=== PATIENT | male | born 1935 | race Caucasian/White ===

== ENCOUNTER 2017-01-13 16:16 | Emergency (ER) | payer MEDICARE, BC ==
[2017-01-13 16:52] VITALS: BP 170/66
--- NOTE | 2017-01-13 17:04 | EDM.PDOC ---
ED HPI GENERAL MEDICAL PROBLEM - General Chief Complaint: General Stated Complaint: UNKNOWN Time Seen by Provider: 01/13/17 16:45 Source of Information: Reports: Patient History Limitations: Reports: No Limitations - History of Present Illness INITIAL COMMENTS - FREE TEXT/NARRATIVE: According to patient he was working in the garage on wood work. He felt dizzy and was trying to get inside the house. He is legally blind. He is not sure if he felt weak, but fell on the lawn and hit his head and not sure if he really hit his head hard, but felt nausea. No weakness. No tingling or numbness in the extremities. No vomiting. No headache. No swelling of the head. called ambulance and was brought in by EMT. Pt was treated for chest congestion yesterday by Dr. Munoz, and also got the wax removed from his ears. He is sore in the left ear. Onset: Today Onset Date: 01/13/17 Onset Time: 16:00 Improves with: Reports: None Worsens with: Reports: None Associated Symptoms: Reports: Nausea/Vomiting, Weakness. Denies: Confusion, Chest Pain, Cough, Fever/Chills, Headaches, Rash, Seizure, Shortness of Breath, Syncope - Related Data Allergies Allergy/AdvReac Type Severity Reaction Status Date / Time codeine Allergy Nausea and Verified 01/13/17 17:52 Vomiting erythromycin base Allergy Nausea Verified 01/13/17 17:52 [Erythromycin Base] Sulfa (Sulfonamide Allergy Nausea Verified 01/13/17 17:52 Antibiotics) Home Meds: Home Meds Pantoprazole [Pantoprazole Sodium] 40 mg PO ACBREAKFAST 01/22/14 [History] Verapamil HCl 360 mg PO DAILY 01/22/14 [History] Lisinopril 40 mg PO DAILY 09/20/14 [History] Simvastatin [Zocor] 20 mg PO QPM 09/20/14 [History] Insulin Isophane NPH, Human [NovoLIN N] 16 unit SUBCUT WITHDINNER 01/13/17 [ History] Insulin Isophane NPH, Human [NovoLIN N] 20 unit SUBCUT QAM 01/13/17 [History] Insulin Regular, Human [NovoLIN R] 8 unit SUBCUT TIDMEALS 01/13/17 [History] Past Medical History HEENT History: Reports: Sinusitis, Other (See Below) Other HEENT History: blind Cardiovascular History: Reports: High Cholesterol, Hypertension Respiratory History: Reports: Other (See Below) Other Respiratory History: multiple lung nodules Gastrointestinal History: Reports: Chronic Constipation, GERD Endocrine/Metabolic History: Reports: Diabetes, Type I - Past Surgical History HEENT Surgical History: Reports: Tonsillectomy GI Surgical History: Reports: Appendectomy Social & Family History - Tobacco Use Smoking Status *Q: Never Smoker Second Hand Smoke Exposure: No - Alcohol Use Days Per Week of Alcohol Use: 0 - Recreational Drug Use Recreational Drug Use: No ED ROS GENERAL - Review of Systems Review Of Systems: See Below Constitutional: Denies: Fever, Chills, Night Sweats, Diaphoresis HEENT: Reports: Other (pt is legaly blind). Denies: Throat Pain, Throat Swelling Respiratory: Reports: Cough, Sputum. Denies: Shortness of Breath, Wheezing, Pleuritic Chest Pain Cardiovascular: Denies: Chest Pain, Lightheadedness GI/Abdominal: Reports: Nausea. 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 and left pupil i 3mm in daimeter very sluggishly reactive to light.) Ears: Normal External Exam, Normal Canal, Hearing Grossly Normal, Normal TMs Nose: Normal Inspection, Normal Mucosa, No Blood Throat/Mouth: Normal Inspection, Normal Lips, Normal Teeth, Normal Gums, Normal Oropharynx, Normal Voice, No Airway Compromise Head: Atraumatic, Normocephalic Neck: Normal Inspection, Supple, Non-Tender, Full Range of Motion Respiratory/Chest: No Respiratory Distress, Lungs Clear, Normal Breath Sounds, No Accessory Muscle Use, Chest Non-Tender Cardiovascular: Normal Peripheral Pulses, Regular Rate, Rhythm, No Edema, No Gallop, No JVD, No Murmur, No Rub GI/Abdominal: Normal Bowel Sounds, Soft, Non-Tender, No Organomegaly, No Distention, No Abnormal Bruit, No Mass Extremities: Normal Inspection, Normal Range of Motion, Non-Tender, Normal Capillary Refill, No Pedal Edema Neurological: Alert, Oriented, CN II-XII Intact, Normal Cognition, Normal Gait, Normal Reflexes, No Motor/Sensory Deficits Course - Vital Signs Text/Narrative:: Pt's CT head shows chronic changes, and he has fluid in the mastoid air cells, which explains his dizziness getting worse over the past 2 days. He does claim he feels swayed to right or left some times. He does feels nausea due to his mastoid fluid collection. His CBC appears normal and his CMP is stable. Pt and reassured that he has mild labrynthitis from the sinus infection. he has been started on augmentin by Dr. Munoz yesterday, which I have advised to continue and advised him to start meclizine 25mg 3 times dialy for his dizziness. AVOID TILTING OR MOVING THE HEAD SUDDENLY which will trigger his dizzy spell. and also risk of fall. This will gradually improve over 1-2 days as the fluid gets absorbed. Last Recorded V/S: Last Vital Signs Temp 96.8 F 01/13/17 16:40 Pulse 54 L 01/13/17 16:40 Resp 20 01/13/17 16:40 BP 170/66 H 01/13/17 16:40 Pulse Ox 95 01/13/17 16:40 - Orders/Labs/Meds Orders: Active Orders 24 hr Category Date Time Status Head wo Cont [CT] Stat Exams 01/13/17 16:57 Taken Labs: Laboratory Tests 01/13/17 01/13/17 01/13/17 Range/Units 16:00 17:30 17:30 WBC 11.3 H (4.0-11.0) K/uL RBC 3.80 L (4.50-6.50) M/uL Hgb 11.4 L (13.0-18.0) g/dL Hct 33.8 L (40.0-54.0) % MCV 89 (76-96) fL MCH 30.0 (27.0-32.0) pg MCHC 33.7 (31.0-35.0) g/dL RDW 12.5 (11.0-16.0) % Plt Count 256 (150-400) K/uL MPV 10.2 H (6.0-10.0) fL Neut % (Auto) 80.0 H (45.0-70.0) % Lymph % (Auto) 6.5 L (20.0-40.0) % [place] % (Auto) 12.3 H (3.0-10.0) % Eos % (Auto) 0.9 L (1.0-5.0) % Baso % (Auto) 0.3 (0.0-0.5) % Neut # (Auto) 9.07 H (2.00-7.50) K/uL Lymph # (Auto) 0.74 L (1.50-4.00) K/uL [place] # (Auto) 1.39 H (0.20-0.80) K/uL Eos # (Auto) 0.10 (0.04-0.40) K/uL Baso # (Auto) 0.03 (0.02-0.10) K/uL Sodium 140 (136-145) mmol/L Potassium 4.3 (3.5-5.1) mmol/L Chloride 104 (98-107) mmol/L Carbon Dioxide 28.1 (21.0-32.0) mmol/L Anion Gap 12.2 (5.0-15.0) mmol/L BUN 25 (8-26) mg/dL Creatinine 1.31 H (0.70-1.30) mg/dL Est Cr Clr Drug Dosing TNP Estimated GFR (MDRD) 52 L (>60) MLS/MIN BUN/Creatinine Ratio 19.1 (6-25) Glucose 186 H D (74-100) mg/dL POC Glucose 186 H (74-110) mg/dL Calcium 8.9 (8.5-10.1) mg/dL Total Bilirubin 0.3 D (0.0-1.0) mg/dL AST 15 (15-37) U/L ALT 22 (12-78) U/L Alkaline Phosphatase 84 (46-116) U/L Total Protein 7.2 (6.4-8.2) g/dL Albumin 3.1 L (3.4-5.0) g/dL Globulin 4.1 (2.2-4.2) g/dL Albumin/Globulin Ratio 0.8 (0.8-2.0) Meds: Medications Discontinued Medications Generic Name Dose Route Start Last Admin Trade Name Megha PRN Reason Stop Dose Admin Meclizine HCl Confirm 01/13/17 17:43 Antivert Administered 01/13/17 17:44 Dose 25 mg .ROUTE .STK-MED ONE Meclizine HCl Confirm 01/13/17 18:15 Antivert Administered 01/13/17 18:16 Dose 50 mg .ROUTE .STK-MED ONE Ondansetron HCl Confirm 01/13/17 17:28 Zofran Odt Administered 01/13/17 17:29 Dose 4 mg .ROUTE .STK-MED ONE Departure - Departure Time of Disposition: 18:15 Disposition: Home, Self-Care 01 Condition: Fair Clinical Impression: Labyrinthitis of both ears - Discharge Information Referrals: PCP,None [Ordering Only Provider] - Forms: ED Department Discharge - Problem List & Annotations (1) Labyrinthitis of both ears SNOMED Code(s): 05096507 Code(s): H83.03 - LABYRINTHITIS, BILATERAL Status: Acute Current Visit: Yes - Problem List Review Problem List Initiated/Reviewed/Updated: Yes - My Orders Last 24 Hours: My Active Orders 01/13/17 16:57 Head wo Cont [CT] Stat - Assessment/Plan Admission H&P: Please use this note as an admission H&P Last 24 Hours: My Active Orders 01/13/17 16:57 Head wo Cont [CT] Stat Assessment:: LAbrynthitis both ear with dizziness Plan: Pt's CT head shows chronic changes, and he has fluid in the mastoid air cells, which explains his dizziness getting worse over the past 2 days. He does claim he feels swayed to right or left some times. He does feels nausea due to his mastoid fluid collection. His CBC appears normal and his CMP is stable. Pt and reassured that he has mild labrynthitis from the sinus infection. he has been started on augmentin by Dr. Munoz yesterday, which I have advised to continue and advised him to start meclizine 25mg 3 times dialy for his dizziness. AVOID TILTING OR MOVING THE HEAD SUDDENLY which will trigger his dizzy spell. and also risk of fall. This will gradually improve over 1-2 days as the fluid gets absorbed.
[2017-01-13] MEDS ORDERED: Ondansetron 4 MG Tab.DIS ONE (17:28)
--- NOTE | 2017-01-13 19:45 | CT ---
DATE OF SERVICE: 01/13/2017 CLINICAL DATA: Fall with dizziness and nausea. UNENHANCED BRAIN CT Multislice acquisition through the brain without IV contrast was performed. No priors. There is diffuse cerebral atrophy. There are extensive periventricular lucencies bilaterally consistent with small vessel ischemic change. 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 No masses or mass effect. No intracranial hemorrhage. No evidence of acute or subacute infarct. There is mucosal thickening in the ethmoid, sphenoid, and right maxillary sinuses consistent with chronic sinusitis. There is atrophy and calcification of the right globe. There is sclerosis of the left mastoid air cells consistent with chronic mastoid disease. No other significant findings. IMPRESSION: No acute intracranial abnormalities. Other findings as discussed above. [id number] [facility]
== END 2017-01-13 18:43 | disposition home or self-care (01) ==
LOC: LB.ED 16:16
DX: H83.03 Labyrinthitis, bilateral (principal); I10 Essential (primary) hypertension; E78.00 Pure hypercholesterolemia, unspecified; K21.9 Gastro-esophageal reflux disease without esophagitis; E10.9 Type 1 diabetes mellitus without complications; Z79.4 Long term (current) use of insulin; Z79.899 Other long term (current) drug therapy; Z88.1 Allergy status to other antibiotic agents; Z88.2 Allergy status to sulfonamides; Z88.5 Allergy status to narcotic agent
CPT/HCPCS: 36415; 70450; 80053; 82962; 85025; 99284; A0425; A0429; A9270

== ENCOUNTER 2017-01-23 22:01 | Observation (INO) | payer MEDICARE, BC ==
[2017-01-23] MEDS: Albuterol/Ipratropium 3.0-0.5 MG/3 ML Neb Soln NEB PRN (22:20)
[2017-01-24] MEDS ORDERED: Furosemide 40 MG/4 ML VIAL IVPUSH ONE (00:23)
[2017-01-24] MEDS ORDERED: cefTRIAXone 1 GM in Sodium Chloride 0.9% 50 ML IV SCH (00:30)
[2017-01-24] MEDS ORDERED: Azithromycin 500 MG in Sodium Chloride 0.9% 250 ML IV SCH (00:30)
--- NOTE | 2017-01-24 00:35 | EDM.PDOC ---
ED HPI GENERAL MEDICAL PROBLEM - General Chief Complaint: General Stated Complaint: TROUBLE WALKING Time Seen by Provider: 01/23/17 23:25 Source of Information: Reports: Patient, Family History Limitations: Reports: No Limitations - History of Present Illness INITIAL COMMENTS - FREE TEXT/NARRATIVE: Patient is an 81 year old man who has had a 12 day history of chest congestion productive of clear sputum. He has been on an oral antibiotic and has a neb that he has not been using but he is getting more congested and weak. He is not having breathing problems. No fever or chills. Onset: Gradual Onset Date: 01/12/17 Onset Time: 07:00 Duration: Day(s): (12) Location: Reports: Chest Quality: Reports: Same as Previous Episode Severity: Moderate Improves with: Reports: None Worsens with: Reports: None Context: Reports: Other (Has been congested for over 2 months and has had to have lasix before.) Associated Symptoms: Reports: Fever/Chills - Related Data Allergies Allergy/AdvReac Type Severity Reaction Status Date / Time codeine Allergy Nausea and Verified 01/13/17 17:52 Vomiting erythromycin base Allergy Nausea Verified 01/13/17 17:52 [Erythromycin Base] Sulfa (Sulfonamide Allergy Nausea Verified 01/13/17 17:52 Antibiotics) Home Meds: Home Meds Pantoprazole [Pantoprazole Sodium] 40 mg PO ACBREAKFAST 01/22/14 [History] Verapamil HCl 360 mg PO DAILY 01/22/14 [History] Lisinopril 40 mg PO DAILY 09/20/14 [History] Simvastatin [Zocor] 20 mg PO QPM 09/20/14 [History] Insulin Isophane NPH, Human [NovoLIN N] 16 unit SUBCUT WITHDINNER 01/13/17 [ History] Insulin Isophane NPH, Human [NovoLIN N] 20 unit SUBCUT QAM 01/13/17 [History] Insulin Regular, Human [NovoLIN R] 8 unit SUBCUT TIDMEALS 01/13/17 [History] Past Medical History HEENT History: Reports: Sinusitis, Other (See Below) Other HEENT History: blind Cardiovascular History: Reports: High Cholesterol, Hypertension Respiratory History: Reports: Other (See Below) Other Respiratory History: multiple lung nodules Gastrointestinal History: Reports: Chronic Constipation, GERD Endocrine/Metabolic History: Reports: Diabetes, Type I - Past Surgical History HEENT Surgical History: Reports: Tonsillectomy GI Surgical History: Reports: Appendectomy Social & Family History - Tobacco Use Smoking Status *Q: Never Smoker Second Hand Smoke Exposure: No - Alcohol Use Days Per Week of Alcohol Use: 0 - Recreational Drug Use Recreational Drug Use: No ED ROS GENERAL - Review of Systems Review Of Systems: See Below Constitutional: Reports: Fever (Low grade), Chills HEENT: Reports: No Symptoms Respiratory: Reports: Cough, Sputum Cardiovascular: Reports: No Symptoms Endocrine: Reports: No Symptoms GI/Abdominal: Reports: No Symptoms : Reports: No Symptoms Musculoskeletal: Reports: No Symptoms Skin: Reports: No Symptoms Neurological: Reports: No Symptoms Psychiatric: Reports: No Symptoms Hematologic/Lymphatic: Reports: No Symptoms Immunologic: Reports: No Symptoms ED EXAM, GENERAL - Physical Exam Exam: See Below Exam Limited By: No Limitations General Appearance: Alert, WD/WN, No Apparent Distress Eye Exam: Bilateral Eye: EOMI, Normal Fundi, Normal Inspection, PERRL Ears: Hearing Loss (Hearing aids in) Ear Exam: Bilateral Ear: Auricle Normal, Canal Normal Nose: Normal Inspection, Normal Mucosa, No Blood Throat/Mouth: Normal Inspection, Normal Lips, Normal Teeth, Normal Gums, Normal Oropharynx, Normal Voice, No Airway Compromise Head: Atraumatic, Normocephalic Neck: Normal Inspection, Supple, Non-Tender, Full Range of Motion Respiratory/Chest: Rales, Rhonchi (Right greater than left lung gallegos.) Cardiovascular: Normal Peripheral Pulses, Regular Rate, Rhythm, No Edema, No Gallop, No JVD, No Murmur, No Rub GI/Abdominal: Normal Bowel Sounds, Soft, Non-Tender, No Organomegaly, No Distention, No Abnormal Bruit, No Mass Back Exam: Normal Inspection, Full Range of Motion, NT Extremities: Pedal Edema (1 plus) Neurological: Alert, Oriented, CN II-XII Intact, Normal Cognition, Normal Gait, Normal Reflexes, No Motor/Sensory Deficits Psychiatric: Normal Affect, Normal Mood Skin Exam: Warm EKG INTERPRETATION EKG Date: 01/23/17 Time: 23:52 Rhythm: NSR [place]: Normal P-Wave: Present QRS: Normal ST-T: Depressed QT: Normal Comparison: NA - No Prior EKG Course - Vital Signs Text/Narrative:: Uneventful ED course. We will admit him to observation for IV Rocephin 1 gram q 24 hours, IV Zithromax 500 mg q 24 hours, IV lasix 20 mg q day with Urinary catheter in since he is too weak to get up for toileting. IV Normal Saline at 100 ml per hour. Low salt diet and watch carefully. He is a full code. Last Recorded V/S: Last Vital Signs Temp 37.1 C 01/23/17 23:12 Pulse 68 01/23/17 23:12 Resp 20 01/23/17 23:12 BP 188/55 H 01/23/17 23:12 Pulse Ox 98 01/23/17 23:12 - Orders/Labs/Meds Orders: Active Orders 24 hr Category Date Time Status Admission Status [Patient Status] [ADT] Routine ADT 01/24/17 00:27 Ordered EKG Documentation Completion [RC] ASDIRECTED Care 01/23/17 22:56 Active RT Aerosol Therapy [RC] ASDIRECTED Care 01/23/17 22:59 Active Urinary Catheter Assessment [RC] ASDIRECTED Care 01/24/17 00:27 Ordered Urinary Catheter Insertion [Insert Urinary Catheter] [ Care 01/24/17 00:30 Ordered OM.PC] Q24H Low Salt [Sodium Restricted Diet] [DIET] Diet 01/24/17 Breakfast Ordered Chest 2V [CR] Stat Exams 01/23/17 22:55 Taken CULTURE BLOOD [BC] Stat Lab 01/24/17 00:22 Ordered Albuterol/Ipratropium [DuoNeb 3.0-0.5 MG/3 ML] Med 01/23/17 22:58 Active 3 ml NEB Q2H PRN Azithromycin [Zithromax] 500 mg Med 01/24/17 00:30 Ordered Sodium Chloride 0.9% [Normal Saline] 250 ml IV Q24H Sodium Chloride 0.9% @ 100 MLS/HR(1,000ml) Med 01/24/17 00:30 Ordered Sodium Chloride 0.9% [Normal Saline] 1,000 ml IV ASDIRECTED cefTRIAXone [Rocephin] 1 gm Med 01/24/17 00:30 Ordered Sodium Chloride 0.9% [Normal Saline] 50 ml IV Q24H Medication Orders Albuterol/Ipratropium (Duoneb 3.0-0.5 Mg/3 Ml) 3 ml NEB Q2H PRN PRN Reason: Congestion Sodium Chloride (Normal Saline) 1,000 mls @ 100 mls/hr IV ASDIRECTED CJ Ceftriaxone Sodium 1 gm/ (Sodium Chloride) 50 mls @ 200 mls/hr IV Q24H CJ Azithromycin 500 mg/ Sodium (Chloride) 250 mls @ 250 mls/hr IV Q24H CJ Labs: Laboratory Tests 01/23/17 01/23/17 01/23/17 Range/Units 23:00 23:00 23:00 WBC (4.0-11.0) K/uL RBC (4.50-6.50) M/uL Hgb (13.0-18.0) g/dL Hct (40.0-54.0) % MCV (76-96) fL MCH (27.0-32.0) pg MCHC (31.0-35.0) g/dL RDW (11.0-16.0) % Plt Count (150-400) K/uL MPV (6.0-10.0) fL Neut % (Auto) (45.0-70.0) % Lymph % (Auto) (20.0-40.0) % [place] % (Auto) (3.0-10.0) % Eos % (Auto) (1.0-5.0) % Baso % (Auto) (0.0-0.5) % Neut # (Auto) (2.00-7.50) K/uL Lymph # (Auto) (1.50-4.00) K/uL [place] # (Auto) (0.20-0.80) K/uL Eos # (Auto) (0.04-0.40) K/uL Baso # (Auto) (0.02-0.10) K/uL Sodium 137 (136-145) mmol/L Potassium 4.6 (3.5-5.1) mmol/L Chloride 101 (98-107) mmol/L Carbon Dioxide 29.6 (21.0-32.0) mmol/L Anion Gap 11.0 (5.0-15.0) mmol/L BUN 18 D (8-26) mg/dL Creatinine 1.29 (0.70-1.30) mg/dL Est Cr Clr Drug Dosing 44.15 mL/min Estimated GFR (MDRD) 53 L (>60) MLS/MIN BUN/Creatinine Ratio 14.0 (6-25) Glucose 218 H (74-100) mg/dL Calcium 8.8 (8.5-10.1) mg/dL Total Bilirubin 0.6 D (0.0-1.0) mg/dL AST 24 (15-37) U/L ALT 27 (12-78) U/L Alkaline Phosphatase 91 (46-116) U/L Troponin I 0.037 (0.000-0.060) ng/mL B-Natriuretic Peptide 1719 H (0-450) pg/mL Total Protein 7.4 (6.4-8.2) g/dL Albumin 3.3 L (3.4-5.0) g/dL Globulin 4.1 (2.2-4.2) g/dL Albumin/Globulin Ratio 0.8 (0.8-2.0) 01/23/17 Range/Units 23:15 WBC 11.9 H D (4.0-11.0) K/uL RBC 3.86 L (4.50-6.50) M/uL Hgb 11.6 L (13.0-18.0) g/dL Hct 34.0 L (40.0-54.0) % MCV 88 (76-96) fL MCH 30.1 (27.0-32.0) pg MCHC 34.1 (31.0-35.0) g/dL RDW 12.4 (11.0-16.0) % Plt Count 262 (150-400) K/uL MPV 9.3 (6.0-10.0) fL Neut % (Auto) 78.1 H (45.0-70.0) % Lymph % (Auto) 8.7 L (20.0-40.0) % [place] % (Auto) 12.9 H (3.0-10.0) % Eos % (Auto) 0.1 L (1.0-5.0) % Baso % (Auto) 0.2 (0.0-0.5) % Neut # (Auto) 9.30 H (2.00-7.50) K/uL Lymph # (Auto) 1.04 L (1.50-4.00) K/uL [place] # (Auto) 1.53 H (0.20-0.80) K/uL Eos # (Auto) 0.01 L (0.04-0.40) K/uL Baso # (Auto) 0.02 (0.02-0.10) K/uL Sodium (136-145) mmol/L Potassium (3.5-5.1) mmol/L Chloride (98-107) mmol/L Carbon Dioxide (21.0-32.0) mmol/L Anion Gap (5.0-15.0) mmol/L BUN (8-26) mg/dL Creatinine (0.70-1.30) mg/dL Est Cr Clr Drug Dosing mL/min Estimated GFR (MDRD) (>60) MLS/MIN BUN/Creatinine Ratio (6-25) Glucose (74-100) mg/dL Calcium (8.5-10.1) mg/dL Total Bilirubin (0.0-1.0) mg/dL AST (15-37) U/L ALT (12-78) U/L Alkaline Phosphatase (46-116) U/L Troponin I (0.000-0.060) ng/mL B-Natriuretic Peptide (0-450) pg/mL Total Protein (6.4-8.2) g/dL Albumin (3.4-5.0) g/dL Globulin (2.2-4.2) g/dL Albumin/Globulin Ratio (0.8-2.0) Meds: Medications Generic Name Dose Route Start Last Admin Trade Name Freq PRN Reason Stop Dose Admin Albuterol/Ipratropium 3 ml 01/23/17 22:58 Duoneb 3.0-0.5 Mg/3 Ml NEB Q2H PRN Congestion Sodium Chloride 1,000 mls @ 100 mls/hr 01/24/17 00:30 Normal Saline IV ASDIRECTED CJ Ceftriaxone Sodium 1 gm/ 50 mls @ 200 mls/hr 01/24/17 00:30 Sodium Chloride IV Q24H CJ Azithromycin 500 mg/ Sodium 250 mls @ 250 mls/hr 01/24/17 00:30 Chloride IV Q24H CJ Discontinued Medications Generic Name Dose Route Start Last Admin Trade Name Freq PRN Reason Stop Dose Admin Furosemide 10 mg 01/24/17 00:23 Lasix IVPUSH 01/24/17 00:24 NOW ONE Departure - Departure Time of Disposition: 00:42 Disposition: Refer to Observation Condition: Fair Clinical Impression: Pneumonia, CHF (congestive heart failure) - Discharge Information - My Orders Last 24 Hours: My Active Orders 01/23/17 22:55 Chest 2V [CR] Stat 01/23/17 22:56 EKG Documentation Completion [RC] ASDIRECTED 01/23/17 22:58 Albuterol/Ipratropium [DuoNeb 3.0-0.5 MG/3 ML] 3 ml NEB Q2H PRN 01/23/17 22:59 RT Aerosol Therapy [RC] ASDIRECTED 01/24/17 00:22 CULTURE BLOOD [BC] Stat 01/24/17 00:27 Admission Status [Patient Status] [ADT] Routine Urinary Catheter Assessment [RC] ASDIRECTED 01/24/17 00:30 Urinary Catheter Insertion [Insert Urinary Catheter] [OM.PC] Q24H Azithromycin [Zithromax] 500 mg Sodium Chloride 0.9% [Normal Saline] 250 ml IV Q24H Sodium Chloride 0.9% @ 100 MLS/HR(1,000ml) Sodium Chloride 0.9% [Normal Saline] 1,000 ml IV ASDIRECTED cefTRIAXone [Rocephin] 1 gm Sodium Chloride 0.9% [Normal Saline] 50 ml IV Q24H 01/24/17 Breakfast Low Salt [Sodium Restricted Diet] [DIET] - Assessment/Plan Last 24 Hours: My Active Orders 01/23/17 22:55 Chest 2V [CR] Stat 01/23/17 22:56 EKG Documentation Completion [RC] ASDIRECTED 01/23/17 22:58 Albuterol/Ipratropium [DuoNeb 3.0-0.5 MG/3 ML] 3 ml NEB Q2H PRN 01/23/17 22:59 RT Aerosol Therapy [RC] ASDIRECTED 01/24/17 00:22 CULTURE BLOOD [BC] Stat 01/24/17 00:27 Admission Status [Patient Status] [ADT] Routine Urinary Catheter Assessment [RC] ASDIRECTED 01/24/17 00:30 Urinary Catheter Insertion [Insert Urinary Catheter] [OM.PC] Q24H Azithromycin [Zithromax] 500 mg Sodium Chloride 0.9% [Normal Saline] 250 ml IV Q24H Sodium Chloride 0.9% @ 100 MLS/HR(1,000ml) Sodium Chloride 0.9% [Normal Saline] 1,000 ml IV ASDIRECTED cefTRIAXone [Rocephin] 1 gm Sodium Chloride 0.9% [Normal Saline] 50 ml IV Q24H 01/24/17 Breakfast Low Salt [Sodium Restricted Diet] [DIET]
[2017-01-24] MEDS: Sodium Chloride 0.9% 1,000 ML IV SCH ×2 (01:10→12:26)
[2017-01-24] MEDS ORDERED: Lidocaine 2% Jelly 5 ML Urojet ONE ×2 (02:25→08:51)
[2017-01-24] MEDS: LORazepam 0.5 MG Tab PO PRN ×2 (03:09→10:23)
[2017-01-24] MEDS: Albuterol/Ipratropium 3.0-0.5 MG/3 ML Neb Soln NEB PRN ×3 (07:31→17:15)
[2017-01-24] MEDS ORDERED: INSULIN ISOPHANE NPH HUMAN 100 UNIT/ML SUBCUT ONE (08:40)
[2017-01-24] MEDS ORDERED: Acetaminophen 325 MG Tab PO PRN (09:14)
[2017-01-24] MEDS ORDERED: Acetaminophen 650 MG Tab.ER ONE (09:17)
[2017-01-24] MEDS ORDERED: LISINOPRIL 40 MG PO SCH (09:45)
[2017-01-24] MEDS ORDERED: VERAPAMIL 360 MG PO SCH (09:45)
[2017-01-24] MEDS: SIMVASTATIN 10 MG PO SCH ×2 (10:40→21:18)
[2017-01-24] MEDS: INSULIN REGULAR HUMAN 100 UNIT/ML SUBCUT SCH ×3 (11:30→21:08)
--- NOTE | 2017-01-24 12:02 | PCM.PN ---
- General Info Date of Service: 01/24/17 Admission Dx/Problem (Free Text): Pneumonia. Functional Status: Reports: Pain Controlled, Urinating - Review of Systems General: Reports: Weakness HEENT: Reports: No Symptoms Pulmonary: Reports: Cough, Sputum Cardiovascular: Reports: No Symptoms Gastrointestinal: Reports: No Symptoms Genitourinary: Reports: No Symptoms Musculoskeletal: Reports: No Symptoms Skin: Reports: No Symptoms Neurological: Reports: No Symptoms Psychiatric: Reports: No Symptoms - Patient Data Vitals - Most Recent: Last Vital Signs Temp 37.1 C 01/23/17 23:12 Pulse 72 01/24/17 02:14 Resp 20 01/23/17 23:12 BP 191/69 H 01/24/17 02:14 Pulse Ox 93 L 01/24/17 02:14 Weight - Most Recent: 95.254 kg I&O - Last 24 Hours: Intake & Output 01/23/17 01/24/17 01/24/17 22:59 06:59 14:59 Intake Total 916 Output Total 800 Balance 116 Med Orders - Current: Current Medications Acetaminophen (Tylenol) 650 mg PO Q4H PRN PRN Reason: Pain Last Admin: 01/24/17 09:59 Dose: 650 mg Albuterol/Ipratropium (Duoneb 3.0-0.5 Mg/3 Ml) 3 ml NEB Q2H PRN PRN Reason: Congestion Last Admin: 01/24/17 07:31 Dose: 3 ml Furosemide (Lasix) 20 mg IVPUSH DAILY [facility] Sodium Chloride (Normal Saline) 1,000 mls @ 100 mls/hr IV ASDIRECTED [facility] Last Admin: 01/24/17 01:10 Dose: 100 mls/hr Ceftriaxone Sodium 1 gm/ (Sodium Chloride) 50 mls @ 200 mls/hr IV Q24H CJ Last Admin: 01/24/17 01:28 Dose: 200 mls/hr Azithromycin 500 mg/ Sodium (Chloride) 250 mls @ 250 mls/hr IV Q24H [facility] Last Admin: 01/24/17 01:28 Dose: 250 mls/hr Insulin Human NPH (Humulin N) 16 unit SUBCUT WITHDINNER [facility] Insulin Human NPH (Humulin N) 20 unit SUBCUT WITHBREAKFAST [facility] Insulin Human Regular (Humulin R) 8 unit SUBCUT TIDAC CJ PRN Reason: Protocol Lisinopril (Prinivil) 40 mg PO DAILY [facility] Last Admin: 01/24/17 08:40 Dose: 40 mg Lorazepam (Ativan) 0.5 mg PO Q4H PRN PRN Reason: Other Last Admin: 01/24/17 10:23 Dose: 0.5 mg Verapamil 360 Mg Tab (.Er*Pt Own Med*) 0 each PO DAILY CJ Last Admin: 01/24/17 08:40 Dose: 360 each Simvastatin (Zocor) 10 mg PO BEDTIME CJ Last Admin: 01/24/17 10:40 Dose: Not Given Discontinued Medications Acetaminophen (Tylenol Arthritis Pain) Confirm Administered Dose 650 mg .ROUTE .STK-MED ONE Stop: 01/24/17 09:18 Last Admin: 01/24/17 10:03 Dose: Not Given Furosemide (Lasix) 10 mg IVPUSH NOW ONE Stop: 01/24/17 00:24 Last Admin: 01/24/17 01:28 Dose: 10 mg Insulin Human NPH (Humulin N) 14 unit SUBCUT ONETIME ONE Stop: 01/24/17 08:41 Last Admin: 01/24/17 08:40 Dose: 14 units Lidocaine HCl (Xylocaine 2% Jelly) Confirm Administered Dose 5 ml .ROUTE .STK- MED ONE Stop: 01/24/17 02:26 Last Admin: 01/24/17 03:15 Dose: 5 ml Lidocaine HCl (Xylocaine 2% Jelly) Confirm Administered Dose 5 ml .ROUTE .STK- MED ONE Stop: 01/24/17 08:52 Last Admin: 01/24/17 09:21 Dose: 5 ml - Exam General: Alert, Mild Distress Neck: Supple Lungs: Rales (Better on right lung gallegos but rales present in left lung gallegos. ) Cardiovascular: Regular Rate, Regular Rhythm GI/Abdominal Exam: Normal Bowel Sounds, Soft, Non-Tender, No Organomegaly, No Distention, No Abnormal Bruit, No Mass, Pelvis Stable Extremities: Normal Inspection, Normal Range of Motion, Non-Tender, No Pedal Edema, Normal Capillary Refill - Problem List Review Problem List Initiated/Reviewed/Updated: Yes - My Orders Last 24 Hours: My Active Orders 01/24/17 00:30 CULTURE BLOOD [BC] Stat 01/24/17 02:50 LORazepam [Ativan] 0.5 mg PO Q4H PRN 01/24/17 09:14 Acetaminophen [Tylenol] 650 mg PO Q4H PRN 01/24/17 09:45 Lisinopril [Prinivil] 40 mg PO DAILY Patient's Own Medication [Ptom] 0 each PO DAILY 01/24/17 10:13 Urinary Catheter Assessment [RC] ASDIRECTED 01/24/17 10:15 Light Catheter Insertion [Insert Urinary Catheter] [OM.PC] Q24H Simvastatin [Zocor] 10 mg PO BEDTIME 01/24/17 11:00 Insulin Regular, Human [HumuLIN R] 8 unit SUBCUT TIDAC 01/24/17 17:00 Insulin Isophane NPH, Human [HumuLIN N] 16 unit SUBCUT WITHDINNER 01/25/17 07:00 Insulin Isophane NPH, Human [HumuLIN N] 20 unit SUBCUT WITHBREAKFAST 01/25/17 08:00 Furosemide [Lasix] 20 mg IVPUSH DAILY - Plan Plan:: Continue Rocephin and Zithromax IV. Will adjust Insulin dosage since he is not eating much yet. He is doing better than last night but still is congested. He will have Lasix 20 mg IV given daily and he will be closely followed by Nursing and myself. Will round on him again tomorrow.
[2017-01-24] MEDS ORDERED: Furosemide 20 MG/2 ML VIAL ONE ×2 (12:11→19:03)
[2017-01-24] MEDS: INSULIN ISOPHANE NPH HUMAN 100 UNIT/ML SUBCUT SCH ×2 (17:29→21:09)
[2017-01-24] MEDS: Furosemide 40 MG/4 ML VIAL ONE ×2 (18:30→21:14)
[2017-01-24] MEDS ORDERED: Aspirin 81 MG Tab.Chew PO ONE (19:00)
[2017-01-24] MEDS ORDERED: Clopidogrel 75 MG Tab PO ONE (19:00)
[2017-01-24] MEDS ORDERED: Nitroglycerin/D5W 25 MG/250 ML BOTTLE IV SCH (19:16)
[2017-01-24] MEDS ORDERED: Morphine 2 MG/ML Syringe ONE (19:25)
--- NOTE | 2017-01-24 20:15 | PCM.DCSUM1 ---
Discharge Summary - Hospital Course Free Text/Narrative:: Patient is an 81 year old man who was admitted last night with a Right Mid Lobe Pneumonia and CHF. He was doing well through the day on IV Rocephin, IV Zithromax, IV Lasix and Duonebs. At 18:25 tonight he was getting another Duoneb and he desaturated his Oxygen level to 72%. He was put on oxygen at 10 liters by rebreathing mask and his pulse oximetry went up to 94%. An EKG done showed ST elevation in Leads [address] depression in leads V3-V6. His Troponin was 0.577. His CXR showed Pulmonary Edema. He was accepted by Dr. Berrios in Cardiology at [facility] who asked that we start a Heparin Drip, Nitro Drip , Aspirin 325 mg orally and Plavix 600 mg orally. He also has been given 60 mg of IV Lasix total since this episode occurred and 1 mg of Morphine. He will be put on a Bi-pap and [facility] will transport him by Helicopter to [place]. HPI Initial Comments: Had CHF and Right mid lobe pneumonia on admission. Brief History: SC and pulmonary edema is reason for transfer. - Discharge Data Discharge Date: 01/24/17 Discharge Disposition: DC/Tfer to Acute Hospital 02 Condition: Serious - Discharge Plan Home Medications: Home Meds Pantoprazole [Pantoprazole Sodium] 40 mg PO ACBREAKFAST 01/22/14 [History] Verapamil HCl 360 mg PO DAILY 01/22/14 [History] Lisinopril 40 mg PO DAILY 09/20/14 [History] Simvastatin [Zocor] 20 mg PO QPM 09/20/14 [History] Insulin Isophane NPH, Human [NovoLIN N] 16 unit SUBCUT WITHDINNER 01/13/17 [ History] Insulin Isophane NPH, Human [NovoLIN N] 20 unit SUBCUT QAM 01/13/17 [History] Insulin Regular, Human [NovoLIN R] 8 unit SUBCUT TIDMEALS 01/13/17 [History] Forms: ED Department Discharge - General Info Date of Service: 01/24/17 Functional Status: Reports: Pain Controlled - Review of Systems General: Reports: Weakness HEENT: Reports: No Symptoms Pulmonary: Reports: Shortness of Breath, Cough, Other (He was Hypoxic.) Cardiovascular: Reports: Other (SC with CHF and Pulmonary Edema.) Gastrointestinal: Reports: No Symptoms Genitourinary: Reports: No Symptoms Musculoskeletal: Reports: No Symptoms Skin: Reports: No Symptoms Neurological: Reports: No Symptoms Psychiatric: Reports: No Symptoms - Patient Data Vitals - Most Recent: Last Vital Signs Temp 36.6 C 01/24/17 12:00 Pulse 97 01/24/17 12:00 Resp 16 01/24/17 12:00 BP 140/48 L 01/24/17 12:00 Pulse Ox 97 01/24/17 12:00 Weight - Most Recent: 95.254 kg I&O - Last 24 hours: Intake & Output 01/24/17 01/24/17 01/24/17 06:59 14:59 22:59 Intake Total 916 700 Output Total 800 500 Balance 116 200 Lab Results - Last 24 hrs: Laboratory Results - last 24 hr 01/24/17 01/24/17 01/24/17 Range/Units 07:20 18:30 19:40 WBC 17.8 H D (4.0-11.0) K/uL RBC 3.74 L (4.50-6.50) M/uL Hgb 11.0 L (13.0-18.0) g/dL Hct 32.4 L (40.0-54.0) % MCV 87 (76-96) fL MCH 29.4 (27.0-32.0) pg MCHC 34.0 (31.0-35.0) g/dL RDW 12.6 (11.0-16.0) % Plt Count 270 (150-400) K/uL MPV 9.8 (6.0-10.0) fL Neut % (Auto) 85.7 H (45.0-70.0) % Lymph % (Auto) 4.2 L (20.0-40.0) % Real % (Auto) 10.0 (3.0-10.0) % Eos % (Auto) 0.0 L (1.0-5.0) % Baso % (Auto) 0.1 (0.0-0.5) % Neut # (Auto) 15.28 H (2.00-7.50) K/uL Lymph # (Auto) 0.75 L (1.50-4.00) K/uL Real # (Auto) 1.78 H (0.20-0.80) K/uL Eos # (Auto) 0.00 L (0.04-0.40) K/uL Baso # (Auto) 0.02 (0.02-0.10) K/uL Sodium (136-145) mmol/L Potassium (3.5-5.1) mmol/L Chloride (98-107) mmol/L Carbon Dioxide (21.0-32.0) mmol/L Anion Gap (5.0-15.0) mmol/L BUN (8-26) mg/dL Creatinine (0.70-1.30) mg/dL Est Cr Clr Drug Dosing mL/min Estimated GFR (MDRD) (>60) MLS/MIN BUN/Creatinine Ratio (6-25) Glucose (74-100) mg/dL POC Glucose 194 H (74-110) mg/dL Calcium (8.5-10.1) mg/dL Total Bilirubin (0.0-1.0) mg/dL AST (15-37) U/L ALT (12-78) U/L Alkaline Phosphatase (46-116) U/L Troponin I 0.577 H* D (0.000-0.060) ng/mL Total Protein (6.4-8.2) g/dL Albumin (3.4-5.0) g/dL Globulin (2.2-4.2) g/dL Albumin/Globulin Ratio (0.8-2.0) 01/24/ Range/Units 19:40 WBC (4.0-11.0) K/uL RBC (4.50-6.50) M/uL Hgb (13.0-18.0) g/dL Hct (40.0-54.0) % MCV (76-96) fL MCH (27.0-32.0) pg MCHC (31.0-35.0) g/dL RDW (11.0-16.0) % Plt Count (150-400) K/uL MPV (6.0-10.0) fL Neut % (Auto) (45.0-70.0) % Lymph % (Auto) (20.0-40.0) % Real % (Auto) (3.0-10.0) % Eos % (Auto) (1.0-5.0) % Baso % (Auto) (0.0-0.5) % Neut # (Auto) (2.00-7.50) K/uL Lymph # (Auto) (1.50-4.00) K/uL Real # (Auto) (0.20-0.80) K/uL Eos # (Auto) (0.04-0.40) K/uL Baso # (Auto) (0.02-0.10) K/uL Sodium 135 L (136-145) mmol/L Potassium 4.3 (3.5-5.1) mmol/L Chloride 101 (98-107) mmol/L Carbon Dioxide 18.2 L D (21.0-32.0) mmol/L Anion Gap 20.1 H (5.0-15.0) mmol/L BUN 20 (8-26) mg/dL Creatinine 1.19 (0.70-1.30) mg/dL Est Cr Clr Drug Dosing 47.86 mL/min Estimated GFR (MDRD) 59 L (>60) MLS/MIN BUN/Creatinine Ratio 16.8 (6-25) Glucose 255 H (74-100) mg/dL POC Glucose (74-110) mg/dL Calcium 8.4 L (8.5-10.1) mg/dL Total Bilirubin 0.9 D (0.0-1.0) mg/dL AST 36 (15-37) U/L ALT 21 (12-78) U/L Alkaline Phosphatase 82 (46-116) U/L Troponin I (0.000-0.060) ng/mL Total Protein 6.9 (6.4-8.2) g/dL Albumin 2.8 L (3.4-5.0) g/dL Globulin 4.1 (2.2-4.2) g/dL Albumin/Globulin Ratio 0.7 L (0.8-2.0) Med Orders - Current: Current Medications Acetaminophen (Tylenol) 650 mg PO Q4H PRN PRN Reason: Pain Last Admin: 01/24/17 09:59 Dose: 650 mg Albuterol/Ipratropium (Duoneb 3.0-0.5 Mg/3 Ml) 3 ml NEB Q2H PRN PRN Reason: Congestion Last Admin: 01/24/17 17:15 Dose: 3 ml Furosemide (Lasix) 20 mg IVPUSH DAILY [facility] Last Admin: 01/24/17 12:26 Dose: 20 mg Sodium Chloride (Normal Saline) 1,000 mls @ 100 mls/hr IV ASDIRECTED [facility] Last Admin: 01/24/17 12:26 Dose: 100 mls/hr Ceftriaxone Sodium 1 gm/ (Sodium Chloride) 50 mls @ 200 mls/hr IV Q24H [facility]J Last Admin: 01/24/17 01:28 Dose: 200 mls/hr Azithromycin 500 mg/ Sodium (Chloride) 250 mls @ 250 mls/hr IV Q24H [facility] Last Admin: 01/24/17 01:28 Dose: 250 mls/hr Insulin Human NPH (Humulin N) 16 unit SUBCUT WITHDINNER [facility] Last Admin: 01/24/17 17:29 Dose: 16 units Insulin Human NPH (Humulin N) 20 unit SUBCUT WITHBREAKFAST [facility] Insulin Human Regular (Humulin R) 8 unit SUBCUT TIDAC [facility] PRN Reason: Protocol Last Admin: 01/24/17 12:20 Dose: 5 units Lisinopril (Prinivil) 40 mg PO DAILY [facility] Last Admin: 01/24/17 08:40 Dose: 40 mg Lorazepam (Ativan) 0.5 mg PO Q4H PRN PRN Reason: Other Last Admin: 01/24/17 10:23 Dose: 0.5 mg Pantoprazole Sodium (Protonix) 40 mg PO ACBREAKFAST [facility] Verapamil 360 Mg Tab (.Er*Pt Own Med*) 0 each PO DAILY [facility] Last Admin: 01/24/17 08:40 Dose: 360 each Simvastatin (Zocor) 10 mg PO BEDTIME [facility] Last Admin: 01/24/17 10:40 Dose: Not Given Discontinued Medications Acetaminophen (Tylenol Arthritis Pain) Confirm Administered Dose 650 mg .ROUTE .STK-MED ONE Stop: 01/24/17 09:18 Last Admin: 01/24/17 10:03 Dose: Not Given Aspirin (Aspirin) 324 mg PO ONETIME ONE Stop: 01/24/17 19:01 Clopidogrel Bisulfate (Plavix) 300 mg PO ONETIME ONE Stop: 01/24/17 19:01 Furosemide (Lasix) 10 mg IVPUSH NOW ONE Stop: 01/24/17 00:24 Last Admin: 01/24/17 01:28 Dose: 10 mg Furosemide (Lasix) Confirm Administered Dose 20 mg .ROUTE .STK-MED ONE Stop: 01/24/17 12:12 Last Admin: 01/24/17 12:48 Dose: Not Given Furosemide (Lasix) Confirm Administered Dose 40 mg .ROUTE .STK-MED ONE Stop: 01/24/17 18:22 Furosemide (Lasix) Confirm Administered Dose 20 mg .ROUTE .STK-MED ONE Stop: 01/24/17 19:04 Insulin Human NPH (Humulin N) 14 unit SUBCUT ONETIME ONE Stop: 01/24/17 08:41 Last Admin: 01/24/17 08:40 Dose: 14 units Lidocaine HCl (Xylocaine 2% Jelly) Confirm Administered Dose 5 ml .ROUTE .STK- MED ONE Stop: 01/24/17 02:26 Last Admin: 01/24/17 03:15 Dose: 5 ml Lidocaine HCl (Xylocaine 2% Jelly) Confirm Administered Dose 5 ml .ROUTE .STK- MED ONE Stop: 01/24/17 08:52 Last Admin: 01/24/17 09:21 Dose: 5 ml Morphine Sulfate (Morphine) Confirm Administered Dose 2 mg .ROUTE .STK-MED ONE Stop: 01/24/17 19:26 - Exam Quality Assessment: Reports: Supplemental Oxygen General: Reports: Alert, Oriented, Cooperative HEENT: Reports: Pupils Equal, Pupils Reactive, EOMI, Mucous Membr. Moist/[place] Neck: Reports: Supple Lungs: Reports: Rales, Rhonchi, Wheezing, Other (All of these are in all lung gallegos.) Cardiovascular: Reports: Regular Rate, Regular Rhythm GI/Abdominal Exam: Normal Bowel Sounds, Soft, Non-Tender, No Organomegaly, No Distention, No Abnormal Bruit, No Mass, Pelvis Stable Extremities: Normal Inspection, Normal Range of Motion, Non-Tender, No Pedal Edema, Normal Capillary Refill Skin: Reports: Warm, Dry, Intact Neurological: Reports: No New Focal Deficit Psy/Mental Status: Reports: Alert, Normal Affect, Normal Mood EKG INTERPRETATION EKG Date: 01/24/17 Rhythm: NSR Seibert: Normal P-Wave: Present QRS: Normal ST-T: Depressed (In leads V3-V6 and elevated in leads 1 and 2.) QT: Normal Comparison: Change From Previous EKG (Significant changes from yesterday's admission EKG.) *Q Meaningful Use (DIS) - VTE *Q VTE Criteria *Q: - Stroke *Q Stroke Criteria *Q: - AMI *Q AMI Criteria *Q:
[2017-01-24] MEDS ORDERED: Morphine 2 MG/ML Syringe IVPUSH PRN (21:41)
[2017-01-24] MEDS ORDERED: Sodium Chloride 0.9% 1,000 ML IV SCH (21:45)
[2017-01-24] MEDS ORDERED: Heparin Sodium/D5W 25,000 UNITS/500 ML BAG IV SCH (21:45)
[2017-01-24 22:10] VITALS: BP 159/62
[2017-01-25] MEDS ORDERED: INSULIN ISOPHANE NPH HUMAN 100 UNIT/ML SUBCUT SCH (07:00)
[2017-01-25] MEDS ORDERED: Furosemide 20 MG/2 ML VIAL IVPUSH SCH (08:00)
--- NOTE | 2017-01-25 10:28 | CR ---
DATE OF SERVICE: 01/23/17 CLINICAL DATA: Productive cough AP AND LATERAL CHEST Comparison is made to a prior exam dated 01/22/17. The patient has taken a very poor inspiration. There is breathing motion artifact. The heart is enlarged. It is probably accentuated by the poor inspiration. There is calcification of the aortic arch. There are poorly defined infiltrates in the right perihilar region. Pneumonia should be considered. The right hilum also appears prominent, however the patient is in an apical lordotic position and slightly rotated to the right. Followup exam is recommended. There are atelectatic changes in both lung bases. No pneumothorax. No other significant findings. [id number] [facility]
--- NOTE | 2017-01-26 07:12 | CR ---
DATE OF SERVICE: 01/24/17 CLINICAL DATA: decreased sats AP PORTABLE CHEST: Comparison is made to a prior exam dated 01/23/17. The heart remains enlarged, unchanged. The pulmonary vasculature is more prominent than on the prior exam with cephalization of flow consistent with pulmonary venous congestion. There are poorly defined perihilar infiltrates bilaterally consistent with pulmonary edema. The exam is otherwise unchanged from the prior. [id number] [facility]
== END 2017-01-24 20:20 ==
LOC: LB.ED 22:01 → LB.MS 01-24 00:27 → UNDOADMOB 01-24 00:45
PROVIDERS: ADMIT Family Medicine; ATTEND Family Medicine
DX: J18.9 Pneumonia, unspecified organism (principal); I50.9 Heart failure, unspecified; I10 Essential (primary) hypertension; E78.00 Pure hypercholesterolemia, unspecified; K21.9 Gastro-esophageal reflux disease without esophagitis; E10.9 Type 1 diabetes mellitus without complications; K59.09 Other constipation; Z79.4 Long term (current) use of insulin; Z79.899 Other long term (current) drug therapy; Z88.1 Allergy status to other antibiotic agents; Z88.2 Allergy status to sulfonamides; Z88.8 Allergy status to other drugs, medicaments and biological substances; Z90.49 Acquired absence of other specified parts of digestive tract; Z98.890 Other specified postprocedural states
CPT/HCPCS: 36415; 71010; 71020; 80053; 82962; 83880; 84484; 85025; 87040; 93005; 96365; 96367; 96372; 96375; 96376; 99236; 99285; A9270; G0378; J0456; J0696; J1644; J1940; J2270; J7040; J7050; J7620; 96374

== ENCOUNTER 2017-02-12 11:24 | Inpatient (IN) | payer MEDICARE, BC ==
[2017-02-12] MEDS ORDERED: Tuberculin, PPD 5 Units/0.1 ML 1 ML MDV IDERM ONE (11:42)
[2017-02-12] MEDS ORDERED: Sodium Chloride 0.9% 10 ML Syringe FLUSH PRN (11:42)
[2017-02-12] MEDS ORDERED: LORazepam 0.5 MG Tab PO PRN (11:49)
--- NOTE | 2017-02-12 17:46 | PCM.HP ---
H&P History of Present Illness - General Date of Service: 02/12/17 Admit Problem/Dx: Admission Diagnosis/Problem Admission Diagnosis/Problem Respiratory distress Source of Information: Family, Old Records, RN History Limitations: Reports: Altered Mental Status - History of Present Illness Initial Comments - Free Text/Narative: 02-12-17 16:30 81 yr male admit to Swing bed program with respiratory distress and anxiety. He was transferred from [place], [place]. states they had been there for about 2 weeks and the physicians stated there wasn't anything more to do for him for aggressive treatment. DNR/DNI signed and palliative care needs to be met. states pt unable to swallow and doesn't receive anything by mouth anymore. Pt has his eyes close and intermittent breaths, irregular breathing noted with Oxygen per N/C. Color is pink and no peripheral edema noted. Capillary refill <3sec to toes. [place] catheter is intact. states he does tug at this and has medication to keep him calm so he doesn't cause any trauma. Family is with the and very supportive. - Related Data Allergies/Adverse Reactions: Allergies Allergy/AdvReac Type Severity Reaction Status Date / Time codeine Allergy Nausea and Verified 02/12/17 11:43 Vomiting erythromycin base Allergy Cannot Verified 02/12/17 11:44 Remember Sulfa (Sulfonamide Allergy Nausea Verified 02/12/17 11:43 Antibiotics) Home Medications: Home Meds Pantoprazole [Pantoprazole Sodium] 40 mg PO ACBREAKFAST 01/22/14 [History] Verapamil HCl 360 mg PO DAILY 01/22/14 [History] Lisinopril 40 mg PO DAILY 09/20/14 [History] Simvastatin [Zocor] 20 mg PO QPM 09/20/14 [History] Insulin Isophane NPH, Human [NovoLIN N] 16 unit SUBCUT WITHDINNER 01/13/17 [ History] Insulin Isophane NPH, Human [NovoLIN N] 20 unit SUBCUT QAM 01/13/17 [History] Insulin Regular, Human [NovoLIN R] 8 unit SUBCUT TIDMEALS 01/13/17 [History] Budesonide [Pulmicort] 0.5 mg IH BID 02/12/17 [History] LORazepam [Ativan ORAL Concentrate 1MG/0.5 ML U/D] 0.5 mg PO Q4HR PRN 02/12/17 [ History] Morphine [Morphine 20 MG/ML Soln] 5 mg PO Q2HR PRN 02/12/17 [History] Scopolamine [Transderm-Scop] 1 each TD Q72H 02/12/17 [History] Past Medical History HEENT History: Reports: Sinusitis, Other (See Below) Other HEENT History: blind Cardiovascular History: Reports: Heart Failure, High Cholesterol, Hypertension, Other (See Below) Other Cardiovascular History: NSTEMI Respiratory History: Reports: Pulmonary Fibrosis, SOB, Other (See Below) Other Respiratory History: multiple lung nodules Gastrointestinal History: Reports: Chronic Constipation, GERD, GI Bleed Genitourinary History: Reports: Acute Renal Failure Endocrine/Metabolic History: Reports: Diabetes, Type I Hematologic History: Reports: Anemia, Blood Transfusion(s) - Past Surgical History HEENT Surgical History: Reports: Tonsillectomy GI Surgical History: Reports: Appendectomy Social & Family History - Family History Family Medical History: Noncontributory - Tobacco Use Smoking Status *Q: Unknown Ever Smoked Second Hand Smoke Exposure: No - Alcohol Use Days Per Week of Alcohol Use: 0 - Recreational Drug Use Recreational Drug Use: No H&P Review of Systems - Review of Systems: Review Of Systems: Unable To Obtain Free Text/Narrative: No verbal response from pt. Exam - Exam Exam: See Below - Vital Signs Weight: 220 lb - Exam Quality Assessment: Supplemental Oxygen General: Mild Distress. No: Alert HEENT: Other (mucous membranes are pink and dry and breathing through mouth) Neck: Supple, Trachea Midline Lungs: Decreased Breath Sounds Cardiovascular: Regular Rate, Normal S1, Normal S2 GI/Abdominal Exam: Soft, Other (round with distant to little bowel sounds.) (Male) Exam: Other (oviedo catheter) Back Exam: Normal Inspection Extremities: Non-Tender, No Pedal Edema, Slow Capillary Refill Peripheral Pulses: 1+: Dorsalis Pedis (L), Dorsalis Pedis (R) Skin: Warm, Dry Neurological: No: Normal Speech Neuro Extensive - Mental Status: No: Alert, Opens Eyes to Commands Psychiatric: No: Alert *Q Meaningful Use (ADM) - VTE *Q VTE Criteria *Q: - Stroke *Q Stroke Criteria *Q: - AMI *Q AMI Criteria *Q: - Problem List (1) Respiratory distress SNOMED Code(s): 434946069 ICD Code: R06.03 - ACUTE RESPIRATORY DISTRESS Status: Acute Priority: High Problem Details: oxygen for comfort, MS 1 mg q 1hr IV as needed for respiratory distress. Turn and reposition as needed. HOB elevated. good oral care. (2) Anxiety SNOMED Code(s): 81732734 ICD Code: F41.9 - ANXIETY DISORDER, UNSPECIFIED Status: Acute Priority: High Problem Details: Ativan 0.5 mg IV as ordered for anxiety Problem List Initiated/Reviewed/Updated: Yes Orders Last 24hrs: Active Orders 24 hr Category Date Time Status Patient Status [ADT] Routine ADT 02/12/17 11:40 Active Patient Status [ADT] Routine ADT 02/12/17 11:42 Active Oxygen Therapy [RC] Care 02/12/17 11:42 Active Urinary Catheter Assessment [RC] Care 02/12/17 11:42 Active Vital Signs [RC] PER UNIT ROUTINE Care 02/12/17 11:42 Active NPO [Nothing Per Oral Diet] [DIET] Diet 02/13/17 Breakfast Ordered CULTURE MRSA SURVEY [] Routine Lab 02/12/17 11:53 Uncollected LORazepam [Ativan] Med 02/12/17 11:48 Active 0.5 mg IVPUSH Q4H PRN LORazepam [Ativan] Med 02/12/17 11:49 Active 0.5 mg PO Q4H PRN Morphine Med 02/12/17 11:42 Active 1 mg IVPUSH Q1H PRN Sodium Chloride 0.9% [Saline Flush] Med 02/12/17 11:42 Active 10 ml FLUSH ASDIRECTED PRN Saline Lock Insert [OM.PC] Routine Oth 02/12/17 11:42 Ordered Resuscitation Status Routine Resus Stat 02/12/17 11:42 Ordered Medication Orders Lorazepam (Ativan) 0.5 mg IVPUSH Q4H PRN PRN Reason: Anxiety Lorazepam (Ativan) 0.5 mg PO Q4H PRN PRN Reason: Anxiety Morphine Sulfate (Morphine) 1 mg IVPUSH Q1H PRN PRN Reason: Pain (severe 7-10) Sodium Chloride (Saline Flush) 10 ml FLUSH ASDIRECTED PRN PRN Reason: Keep Vein Open Assessment/Plan Comment:: Respiratory distress: Oxygen per N/C as needed to keep SpO2>92% MS 1 mg IV as needed Oral care as needed. Resposition and HOB elevated for comfort Anxiety: Provide calm environment for pt and family. Ativan 0.5 mg IV as needed per order.
[2017-02-12] MEDS: Morphine 2 MG/ML Syringe IVPUSH PRN ×2 (18:10→21:11)
[2017-02-12] MEDS: LORazepam 2 MG/ML MDV IVPUSH PRN (21:50)
[2017-02-13] MEDS: Morphine 2 MG/ML Syringe IVPUSH PRN ×3 (02:10→08:10)
[2017-02-13] MEDS: LORazepam 2 MG/ML MDV IVPUSH PRN (02:25)
[2017-02-13 04:50] VITALS: BP 126/44
--- NOTE | 2017-02-13 23:14 | PCM.DCSUM1 ---
Discharge Summary - Hospital Course Free Text/Narrative:: , post IA and multi-system organ failure - Discharge Data Discharge Date: 02/13/17 Discharge Disposition: 20 Condition: - Discharge Diagnosis/Problem(s) (1) Respiratory distress SNOMED Code(s): 507376697 ICD Code: R06.03 - ACUTE RESPIRATORY DISTRESS Status: Acute Priority: High Problem Details: oxygen for comfort, MS 1 mg q 1hr IV as needed for respiratory distress. Turn and reposition as needed. HOB elevated. good oral care. (2) Anxiety SNOMED Code(s): 48479482 ICD Code: F41.9 - ANXIETY DISORDER, UNSPECIFIED Status: Acute Priority: High Problem Details: Ativan 0.5 mg IV as ordered for anxiety - Discharge Plan Home Medications: Home Meds Pantoprazole [Pantoprazole Sodium] 40 mg PO ACBREAKFAST 01/22/14 [History] Verapamil HCl 360 mg PO DAILY 01/22/14 [History] Lisinopril 40 mg PO DAILY 09/20/14 [History] Simvastatin [Zocor] 20 mg PO QPM 09/20/14 [History] Insulin Isophane NPH, Human [NovoLIN N] 16 unit SUBCUT WITHDINNER 01/13/17 [ History] Insulin Isophane NPH, Human [NovoLIN N] 20 unit SUBCUT QAM 01/13/17 [History] Insulin Regular, Human [NovoLIN R] 8 unit SUBCUT TIDMEALS 01/13/17 [History] Budesonide [Pulmicort] 0.5 mg IH BID 02/12/17 [History] LORazepam [Ativan ORAL Concentrate 1MG/0.5 ML U/D] 0.5 mg PO Q4HR PRN 02/12/17 [ History] Morphine [Morphine 20 MG/ML Soln] 5 mg PO Q2HR PRN 02/12/17 [History] Scopolamine [Transderm-Scop] 1 each TD Q72H 02/12/17 [History] - Discharge Summary/Plan Comment DC Time >30 min.: No Discharge Summary/Plan Comment: Nursing staff contacted practioner, notified of pt . No pulse noted to auscultation and no respirations noted. Family at bedside. Family express thankfulness and comfort of pt being in home town. Nurse to contact clergy and home for arrangements. Continue to provide comfort and assist family as needed. - General Info Date of Service: 02/13/17 Admission Dx/Problem (Free Text: Admission Diagnosis/Problem Admission Diagnosis/Problem Respiratory distress Subjective Update: / - Patient Data Vitals - Most Recent: Last Vital Signs Temp 97.8 F 02/13/17 02:00 Pulse 55 L 02/13/17 02:00 Resp 26 H 02/13/17 02:00 BP 126/44 L 02/13/17 02:00 Pulse Ox 88 L 02/13/17 02:00 Weight - Most Recent: 220 lb Med Orders - Current: Current Medications Discontinued Medications Lorazepam (Ativan) 0.5 mg IVPUSH Q4H PRN PRN Reason: Anxiety Last Admin: 02/13/17 02:25 Dose: 0.5 mg Lorazepam (Ativan) 0.5 mg PO Q4H PRN PRN Reason: Anxiety Morphine Sulfate (Morphine) 1 mg IVPUSH Q1H PRN PRN Reason: Pain (severe 7-10) Last Admin: 02/13/17 08:10 Dose: 1 mg Sodium Chloride (Saline Flush) 10 ml FLUSH ASDIRECTED PRN PRN Reason: Keep Vein Open Tuberculin PPD (Aplisol) 5 unit IDERM ONETIME ONE Stop: 02/12/17 11:43 - Exam Lungs: Reports: Other (no respirations) Cardiovascular: Reports: Other (No heart sounds to auscultation) *Q Meaningful Use (DIS) - VTE *Q VTE Criteria *Q: - Stroke *Q Stroke Criteria *Q: - AMI *Q AMI Criteria *Q:
== END 2017-02-13 09:07 | disposition expired | DRG 204 ==
LOC: LB.MS 16:07
PROVIDERS: ADMIT Nurse Practitioner Family; ATTEND Nurse Practitioner Family
DX: R06.03 Acute respiratory distress (principal); Z51.5 Encounter for palliative care; Z66 Do not resuscitate; F41.9 Anxiety disorder, unspecified; H54.7 Unspecified visual loss; I10 Essential (primary) hypertension; I50.9 Heart failure, unspecified; I11.0 Hypertensive heart disease with heart failure; E10.9 Type 1 diabetes mellitus without complications; Z79.4 Long term (current) use of insulin; E78.00 Pure hypercholesterolemia, unspecified; I25.2 Old myocardial infarction; J84.10 Pulmonary fibrosis, unspecified; K59.09 Other constipation; K21.9 Gastro-esophageal reflux disease without esophagitis; Z88.1 Allergy status to other antibiotic agents; Z88.5 Allergy status to narcotic agent; Z88.2 Allergy status to sulfonamides
CPT/HCPCS: J2060; J2270